=== PATIENT | female | born 1975 | race Caucasian/White ===

== ENCOUNTER → 2017-03-05 08:42 | Outpatient (CLI) | payer SELFPAY | END | disposition home or self-care (01) | LOC: D.LAB 08:42 | DX: F41.9 Anxiety disorder, unspecified (principal); R53.83 Other fatigue; E61.9 Deficiency of nutrient element, unspecified ==

== ENCOUNTER → 2017-03-09 08:23 | Outpatient (CLI) | payer MEDICAID ==
[2017-03-09 09:36] LABS: ALBUMIN 3.9 g/dL (3.4-5.0); ANION GAP 11.7 mmol/L (8-16); BILIRUBIN - INDIRECT 0.2 mg/dL (0.00-1.00); BILIRUBIN - TOTAL 0.24 mg/dL (0.2-1.3); CALCIUM 8.4 mg/dL (8.5-10.1); CARBON DIOXIDE 27.9 mmol/L (21.0-32.0); CREATININE - SERUM 0.9 mg/dL (0.6-1.3); POTASSIUM - SERUM 3.6 mmol/L (3.5-5.1); PROTEIN - SERUM 7.6 g/dL (6.4-8.2); T4 THYROXIN - FREE 0.98 ng/dL (0.76-1.46); T4 THYROXINE 6.2 ug/dL (4.7-13.3); THYROID STIMULATING HORMONE 1.67 uIU/mL (0.36-3.74)
[2017-03-09 09:38] LABS: BILIRUBIN - DIRECT 0.04 mg/dL (0.00-0.30)
[2017-03-09 09:47] LABS: BASOPHILS 0.3 % (0-2); EOSINOPHILS 8.6 % (0-7); HEMOGLOBIN 11.8 g/dL (12-16); IMMATURE GRANULOCYTES 0.2 % (0-5); LYMPHOCYTES 22.2 % (15-50); MCH 28.2 pg (26.0-34.0); MCHC 32.8 g/dL (31.0-37.0); MCV 85.9 fL (80.0-100.0); MEAN PLATELET VOLUME 11.3 fL (7.4-10.4); MONOCYTES 6.8 % (2-11); NEUTROPHILS 61.9 % (40-80); PLATELET COUNT 214 10x3/uL (130-400); RBC 4.19 10x6/uL (4.00-5.40); RDW 14.8 % (11.5-14.5); WBC 8.7 10x3/uL (4.8-10.8)
[2017-03-10 06:13] LABS: T3 - FREE 2.6 pg/mL (2.0-4.4)
[2017-03-12 10:10] LABS: VITAMIN D 25 HYDROXY 26.1 ng/mL (30.0-100.0)
== END | disposition home or self-care (01) ==
LOC: D.LAB 02-27 14:00
DX: E55.9 Vitamin D deficiency, unspecified (principal); R53.83 Other fatigue; F41.9 Anxiety disorder, unspecified; R23.8 Other skin changes; R22.0 Localized swelling, mass and lump, head